=== PATIENT | female | born 1940 | race Caucasian/White ===

== ENCOUNTER → 2016-07-20 | Outpatient (CLI) | payer OTHER ==
[~2016-07-20] MED LIST: CEPH500C PO; CPR500HP; LANS15CA27 PO; LANS30CA12 PO; ONDA4TAB46 PO; OXYC1TAB3 PO; [UNRECOGNIZED DRUG - CODE] PO
--- NOTE | 2016-07-20 11:17 | DIAGNOSTIC IMAGING REPORT ---
LUMBAR SPINE 5 VIEWS HISTORY: Pain M54.5 Back pain, [id number] COMPARISON: 08/04/2015 FINDINGS: There is no fracture. No subluxation. Moderate degenerative disc change. No evidence for compression deformity. Mild reactive osteophytic change from the vertebral endplates. IMPRESSION: Moderate degenerative change. No acute process. No change from the prior exam. Electronically signed by: Alberto Buckner M.D. 07/20/2016 11:15 AM Dictated Date/Time: 07/20/2016 11:14 AM
--- NOTE | 2016-07-20 11:20 | DIAGNOSTIC IMAGING REPORT ---
KUB CLINICAL HISTORY: M54.5 Back pain, [id number] pain COMPARISON STUDY: No previous studies for comparison. FINDINGS: The soft tissues, psoas shadows, renal outlines and intestinal gas pattern appear normal. There is no evidence for bowel obstruction. No abnormal abdominal calcifications are seen. IMPRESSION: Normal study. Electronically signed by: Alberto Buckner M.D. 07/20/2016 11:18 AM Dictated Date/Time: 07/20/2016 11:18 AM
[2016-07-20 11:52] LABS: BASO % 0.4 %; BASO ABS # 0.03 K/uL (0-0.2); COMPLETE YES; EOS % 0.9 %; HEMATOCRIT 38.2 % (37-47); LYMPH % 27.5 %; LYMPH ABS # 1.93 K/uL (1.2-3.4); MEAN CELL VOLUME 90.7 fL (80-100); MEAN CORPUSCULAR HEMOGLOBIN 30.6 pg (25-34); MEAN CORPUSCULAR HGB CONC 33.8 g/dl (32-36); MEAN PLATELET VOLUME 10.9 fL (7.4-10.4); MONO % 8.1 %; NEUT % 63.1 %; PLATELET COUNT 198 K/uL (130-400); RED BLOOD COUNT 4.21 M/uL (4.2-5.4); WHITE BLOOD COUNT 7.02 K/uL (4.8-10.8)
[2016-07-20 12:25] LABS: ALT/SGPT 17 U/L (12-78); BLOOD UREA NITROGEN 18 mg/dl (7-18); BUN/CREATININE RATIO 16.4 (10-20); CALCIUM 8.5 mg/dl (8.5-10.1); CARBON DIOXIDE 21 mmol/L (21-32); CHLORIDE 106 mmol/L (98-107); GLUCOSE 92 mg/dl (70-99); POTASSIUM 3.9 mmol/L (3.5-5.1); SODIUM 138 mmol/L (136-145)
[2016-07-20 12:26] LABS: URINE APPEARANCE CLOUDY (CLEAR); URINE BILIRUBIN NEG (NEG); URINE COLOR YELLOW; URINE EPITHELIAL CELL AUTO 0-5 /lpf (0-5); URINE NITRITE POS (NEG); URINE PH 5.5 (4.5-7.5); UROBILINOGEN NEG (NEG); ZZUR CULT IF INDIC CLEAN CATCH YES
[2016-07-20 12:28] LABS: ALB/GLOB RATIO 1.1 (0.9-2); ALKALINE PHOSPHATASE 54 U/L (45-117); AST/SGOT 13 U/L (15-37)
[2016-07-20 12:35] LABS: MANUAL MICROSCOPIC REQUIRED? NO; REVIEW REQ? NO
== END | disposition home or self-care (01) ==
LOC: C.RAD1850 10:42
PROVIDERS: ATTEND Internal Medicine
DX: M54.5 Low back pain (principal); E55.9 Vitamin D deficiency, unspecified

== ENCOUNTER 2016-07-24 17:40 | Emergency (ER) | payer OTHER ==
[~2016-07-24] VITALS: Ht 157.5 cm; Wt 61.6 kg
[~2016-07-24 17:40] MED LIST changes: -CEPH500C PO; -CPR500HP; -LANS15CA27 PO; -[UNRECOGNIZED DRUG - CODE] PO
[2016-07-24 18:06] VITALS: TEMP 36.6; Ht 157.5 cm; Wt 61.6 kg
--- NOTE | 2016-07-24 19:02 | EMERGENCY ROOM VISIT NOTE ---
History Report prepared by Ishmael: Mike Curiel Under the Supervision of: Dr. Theresa Stevens M.D. First contact with patient: 18:46 Chief Complaint: SWELLING TO EXTREMITY Stated Complaint: SWOLLEN L HAND History of Present Illness The patient is a 76 year old female who presents to the Emergency Room with complaints of pain and swelling in the left elbow that began four days prior to arrival. This history was acquired from a family member of the patient's, as she does not speak French. The patient had blood drawn at her primary care physician's office on the 9 of this month, and the swelling started shortly afterward. She denies any rashes or swelling elsewhere. She also denies any shortness of breath, abdominal pain, or recent fevers. Source of History: patient, family Onset: 4 days prior to arrival Position: elbow (left) Quality: other (Swelling) Associated Symptoms: No SOB, No abdominal pain, No fevers Review of Systems See HPI for pertinent positives & negatives. A total of 10 systems reviewed and were otherwise negative. Past Medical & Surgical Medical Problems: (1) Cancer (2) HTN (hypertension) (3) Stomach problems Family History Cancer Heart disease Hypertension Lung disease Social History Smoking Status: Never Smoker Alcohol Use: none Marital Status: Occupation Status: retired Current/Historical Medications Scheduled Cephalexin Monohydrate (Keflex), 500 MG PO QID Cholecalciferol (Ra Vitamin D-3), 1 TAB PO DAILY Lansoprazole (Prevacid), 1 TAB PO BID Miscellaneous Medications Ciprofloxacin (Ciprofloxacin HCl) Allergies Coded Allergies: No Known Allergies (Unverified , 07/24/16) Physical Exam Vital Signs Date Time Temp Pulse Resp B/P Pulse Ox O2 Delivery O2 Flow Rate FiO2 07/24/16 22:08 78 20 158/74 97 07/24/16 20:56 79 07/24/16 20:03 80 20 161/80 94 Room Air 07/24/16 18:06 36.6 82 20 161/86 97 Room Air Physical Exam Vital signs reviewed. General: Elderly, generally well, in no significant distress. HEENT: No scleral icterus, PERRLA, neck supple. Atraumatic. Cardiovascular: Regular rate and rhythm, no extra sounds. Pulmonary: Clear to auscultation bilaterally, normal work of breathing. Abdomen: Soft, nontender, nondistended, positive bowel sounds. Extremities: Erythematous left mid-arm surrounding the AC space wrapped around the dorsal elbow. Tender to palpation, warm to touch, no open lesions, no drainage. No significant edema of the distal upper extremity. Neurologic: Patient awake alert and oriented x 3 Skin: Warm, dry, no rash Medical Decision & Procedures ER Provider Diagnostic Interpretation: X-ray results as stated below per my interpretation and radiologist interpretation. Other radiology results as stated below per my review and radiologist interpretation: LEFT UPPER EXTREMITY VENOUS DOPPLER ULTRASOUND CLINICAL HISTORY: Left upper extremity swelling. COMPARISON STUDY: No previous studies for comparison. FINDINGS: No deep venous thrombus was identified within the left upper extremity. The proximal left cephalic vein was suboptimally assessed on this exam. IMPRESSION: No deep venous thrombus within the left upper extremity. Electronically signed by: Nikolai Kothari M.D. 07/24/2016 8:51 PM Dictated Date/Time: 07/24/2016 8:51 PM Laboratory Results 07/24/16 19:40 Red Blood Count 4.26, Mean Corpuscular Volume 89.9, Mean Corpuscular Hemoglobin 30.8, Mean Corpuscular Hemoglobin Concent 34.2, Mean Platelet Volume 10.8, Neutrophils (%) (Auto) 65.5, Lymphocytes (%) (Auto) 24.9, Monocytes (%) (Auto) 7.2, Eosinophils (%) (Auto) 1.5, Basophils (%) (Auto) 0.7, Neutrophils # (Auto) 3.93, Lymphocytes # (Auto) 1.49, Monocytes # (Auto) 0.43, Eosinophils # (Auto) 0.09, Basophils # (Auto) 0.04 07/24/16 19:40 Test 07/24/16 19:40 White Blood Count 5.99 K/uL (4.8-10.8) Red Blood Count 4.26 M/uL (4.2-5.4) Hemoglobin 13.1 g/dL (12.0-16.0) Hematocrit 38.3 % (37-47) Mean Corpuscular Volume 89.9 fL (80-100) Mean Corpuscular Hemoglobin 30.8 pg (25-34) Mean Corpuscular Hemoglobin Concent 34.2 g/dl (32-36) Platelet Count 196 K/uL (130-400) Mean Platelet Volume 10.8 fL (7.4-10.4) Neutrophils (%) (Auto) 65.5 % Lymphocytes (%) (Auto) 24.9 % Monocytes (%) (Auto) 7.2 % Eosinophils (%) (Auto) 1.5 % Basophils (%) (Auto) 0.7 % Neutrophils # (Auto) 3.93 K/uL (1.4-6.5) Lymphocytes # (Auto) 1.49 K/uL (1.2-3.4) Monocytes # (Auto) 0.43 K/uL (0.11-0.59) Eosinophils # (Auto) 0.09 K/uL (0-0.5) Basophils # (Auto) 0.04 K/uL (0-0.2) RDW Standard Deviation 42.3 fL (36.4-46.3) RDW Coefficient of Variation 12.9 % (11.5-14.5) Immature Granulocyte % (Auto) 0.2 % Immature Granulocyte # (Auto) 0.01 K/uL (0.00-0.02) Prothrombin Time 10.2 SECONDS (9.0-12.0) Prothromb Time International Ratio 1.0 (0.9-1.1) Activated Partial Thromboplast Time 26.5 SECONDS (21.0-31.0) Partial Thromboplastin Ratio 1.0 Anion Gap 9.0 mmol/L (3-11) Est Creatinine Clear Calc Drug Dose 37.6 ml/min Estimated GFR () 56.5 Estimated GFR (Non- 48.7 BUN/Creatinine Ratio 17.0 (10-20) Calcium Level 8.9 mg/dl (8.5-10.1) Magnesium Level 2.4 mg/dl (1.8-2.4) Total Bilirubin 0.4 mg/dl (0.2-1) Direct Bilirubin 0.1 mg/dl (0-0.2) Aspartate Amino Transf (AST/SGOT) 11 U/L (15-37) Alanine Aminotransferase (ALT/SGPT) 18 U/L (12-78) Alkaline Phosphatase 55 U/L (45-117) Total Protein 7.3 gm/dl (6.4-8.2) Albumin 4.0 gm/dl (3.4-5.0) Laboratory results per my review. Medications Administered Medications (Trade) Dose Ordered Sig/Becka Route Start Time Stop Time Status Last Admin Dose Admin Sodium Chloride 250 ml @ 999 mls/hr Q16M STAT IV 07/24/16 19:13 07/24/16 19:28 DC 07/24/16 19:55 999 MLS/HR Sodium Chloride (Nss 1000ml) 1,000 ml @ 125 mls/hr Q8H STAT IV 07/24/16 19:13 07/24/16 22:21 DC 07/24/16 20:45 125 MLS/HR Cephalexin Monohydrate (Keflex 500MG Home Pack) 1 homepack NOW ONCE PO 07/24/16 21:00 07/24/16 21:01 DC 07/24/16 21:27 1 HOMEPACK Ceftriaxone Sodium (Rocephin Inj) 1 gm NOW STAT IV 07/24/16 21:07 07/24/16 21:08 DC 07/24/16 21:25 1 GM ED Course 1847: Past medical records reviewed. The patient was evaluated in room A10. A complete history and physical examination was performed. 1912: Ordered Sodium Chloride 250 mL @ 999 mL/hr IV, Sodium Chloride 1000 mL @ 125 mL/hr IV. 2099: Ordered Keflex 500 mg PO, Cephalexin 1 homepack PO. 2107: Upon reevaluation, the patient appeared to have improvement of her symptoms. I discussed findings with her. She verbalized agreement of the treatment plan. The patient's daughter also mentioned that the patient had recently been diagnosed with an UTI and was prescribed Cipro. She has not started this prescription yet. I will prescribe Keflex to cover the cellulitis and UTI. The patient was discharged home. Medical Decision Differential diagnosis: Etiologies such as cellulitis, abscess, MRSA infection, DVT, necrotizing fasciitis, dermatitis, drug eruption, as well as others were entertained. This pt was evaluated and appeared to be in no distress. PE reveals a red warm area to the left UE over AC area. US of LUE is negative for DVT. Pt was informed of the findings. Granddaughter states pt was recently was Rx cipro for UTI. Cultures results indicate a acmpos sensitive e coli. Pt was given 1 gm IV ceftriaxone. She was advised to not take the cipro, start keflex 500 mg QID x 7 days. This will likely treat the cellulitis and UTI. Pt will f.u with PCP this week and return to the ED for worsening of symptoms or any medical concerns. Impression Primary Impression: Cellulitis of left upper extremity Scribe Attestation The scribe's documentation has been prepared under my direction and personally reviewed by me in its entirety. I confirm that the note above accurately reflects all work, treatment, procedures, and medical decision making performed by me. Departure Information Dispostion Home / Self-Care Prescriptions Cephalexin Monohydrate (Keflex) 500 Mg Cap 500 MG PO QID, #28 CAP Prov: Theresa Stevens M.D. 07/24/16 Referrals RV. iBrd MD (PCP) Forms HOME CARE DOCUMENTATION FORM, IMPORTANT VISIT INFORMATION, WORK / SCHOOL INSTRUCTIONS Patient Instructions [facility] Additional Instructions Diagnosis: Cellulitis Keflex 500 mg 4 times daily for 7 days. Tylenol 650 mg every 6 hours as needed for pain or fever. If the rash worsens or if fever develops, he will need to be reevaluated. Return to the ER for worsening of symptoms or any medical concerns.
[2016-07-24] MEDS ORDERED: [UNRECOGNIZED DRUG - CODE] PO (19:08)
[2016-07-24] MEDS ORDERED: CPR500HP (19:08)
[2016-07-24] MEDS ORDERED: LANS15CA27 PO (19:08)
[2016-07-24] MEDS ORDERED: SODIUM CHLORIDE 0.9% 250ML 250 ML IV STA (19:13)
[2016-07-24] MEDS ORDERED: SODIUM CHLORIDE 0.9% 1000ML 1,000 ML IV STA (19:13)
[2016-07-24 19:49] LABS: BASO % 0.7 %; BASO ABS # 0.04 K/uL (0-0.2); COMPLETE YES; EOS % 1.5 %; HEMATOCRIT 38.3 % (37-47); IG% 0.2 %; LYMPH % 24.9 %; LYMPH ABS # 1.49 K/uL (1.2-3.4); MEAN CELL VOLUME 89.9 fL (80-100); MEAN CORPUSCULAR HEMOGLOBIN 30.8 pg (25-34); MEAN CORPUSCULAR HGB CONC 34.2 g/dl (32-36); MEAN PLATELET VOLUME 10.8 fL (7.4-10.4); MONO % 7.2 %; NEUT % 65.5 %; PLATELET COUNT 196 K/uL (130-400); RED BLOOD COUNT 4.26 M/uL (4.2-5.4); WHITE BLOOD COUNT 5.99 K/uL (4.8-10.8)
[2016-07-24 20:04] LABS: PROTHROMBIN TIME (PATIENT) 10.2 SECONDS (9.0-12.0)
[2016-07-24 20:08] LABS: CALCIUM 8.9 mg/dl (8.5-10.1); CREATININE 1.1 mg/dl (0.60-1.20); MAGNESIUM 2.4 mg/dl (1.8-2.4); POTASSIUM 3.9 mmol/L (3.5-5.1)
--- NOTE | 2016-07-24 20:53 | DIAGNOSTIC IMAGING REPORT ---
LEFT UPPER EXTREMITY VENOUS DOPPLER ULTRASOUND CLINICAL HISTORY: Left upper extremity swelling. COMPARISON STUDY: No previous studies for comparison. FINDINGS: No deep venous thrombus was identified within the left upper extremity. The proximal left cephalic vein was suboptimally assessed on this exam. IMPRESSION: No deep venous thrombus within the left upper extremity. Electronically signed by: Nikolai Kothari M.D. 07/24/2016 8:51 PM Dictated Date/Time: 07/24/2016 8:51 PM
[2016-07-24] MEDS ORDERED: CEPHALEXIN 500MG HOME PACK 1 EA BTL PO ONE (21:00)
[2016-07-24] MEDS ORDERED: CEPHALEXIN MONOHYDRATE 250 MG CAP PO ONE (21:00)
[2016-07-24] MEDS ORDERED: CEFTRIAXONE SOD INJ 1 GM ADDVIAL IV STA (21:07)
[2016-07-24] MEDS ORDERED: CEPH500C PO (21:37)
[2016-07-24 22:08] VITALS: BP 158/74; PULSE 78; O2SAT 97
== END 2016-07-24 22:10 | disposition home or self-care (01) ==
LOC: C.EDB 17:41 → C.EDA 22:10
DX: L03.114 Cellulitis of left upper limb (principal); N39.0 Urinary tract infection, site not specified; Z85.9 Personal history of malignant neoplasm, unspecified; I10 Essential (primary) hypertension; Z80.9 Family history of malignant neoplasm, unspecified; Z82.49 Family history of ischemic heart disease and other diseases of the circulatory system; Z83.6 Family history of other diseases of the respiratory system; Z79.899 Other long term (current) drug therapy; M79.602 Pain in left arm

== ENCOUNTER → 2016-08-02 | Outpatient (CLI) | payer OTHER ==
[~2016-08-02] MED LIST changes: +CEPH500C PO; +CPR500HP; +LANS15CA27 PO; -LANS30CA12 PO; -ONDA4TAB46 PO; -OXYC1TAB3 PO; +[UNRECOGNIZED DRUG - CODE] PO
[2016-08-02 10:19] LABS: URINE APPEARANCE CLEAR (CLEAR); URINE BILIRUBIN NEG (NEG); URINE COLOR YELLOW; URINE EPITHELIAL CELL AUTO 20-30 /lpf (0-5); URINE NITRITE NEG (NEG); UROBILINOGEN NEG (NEG); ZZUR CULT IF INDIC CLEAN CATCH NO
[2016-08-02 10:32] LABS: MANUAL MICROSCOPIC REQUIRED? NO; REVIEW REQ? NO
== END | disposition home or self-care (01) ==
LOC: C.LAB1850 09:15
PROVIDERS: ATTEND Internal Medicine
DX: R35.0 Frequency of micturition (principal)

== ENCOUNTER → 2017-06-26 | Outpatient (CLI) | payer OTHER ==
[~2017-06-26] MED LIST changes: -CEPH500C PO
--- NOTE | 2017-06-26 16:48 | DIAGNOSTIC IMAGING REPORT ---
PELVIS 1 OR 2 VIEW ROUTINE, SACRUM COCCYX MIN 2 VIEWS HISTORY: 77 years-old Female W19.XXXA Fall, [id number] acute pelvic pain status post fall COMPARISON: Lumbar spine radiographs 07/20/2016 TECHNIQUE: AP view the pelvis with 2 views of the sacrum and coccyx FINDINGS: PELVIS: Bones appear mildly demineralized. Mild to moderate degenerative changes of the bilateral femoral acetabular joints. Proximal femora appear intact bilaterally. No pelvic ring fracture is identified. Degenerative changes are noted within the imaged lower lumbar spine. Probable phleboliths of the pelvis. Soft tissues are unremarkable. SACRUM/COCCYX: Sacrum appears intact. Mild to moderate degenerative changes of the bilateral SI joints and pubic symphysis. No acute fracture or subluxation identified. Moderate to severe intervertebral disc space narrowing at L5-S1 with multilevel facet arthrosis. IMPRESSION: 1. No acute fracture of the pelvis, sacrum or coccyx identified. 2. Mildly demineralized appearance of the bones with degenerative changes as above. The above report was generated using voice recognition software. It may contain grammatical, syntax or spelling errors. Electronically signed by: Jose Manuel Hanson M.D. 06/26/2017 4:47 PM Dictated Date/Time: 06/26/2017 4:44 PM
== END | disposition home or self-care (01) ==
LOC: C.RAD1850 15:37
PROVIDERS: ATTEND Internal Medicine
DX: R10.2 Pelvic and perineal pain (principal); W19.XXXA Unspecified fall, initial encounter

== ENCOUNTER → 2017-09-10 | Outpatient (CLI) | payer OTHER ==
[2017-09-10 10:36] LABS: BASO % 0.8 %; BASO ABS # 0.04 K/uL (0-0.2); EOS % 2.3 %; EOS ABS # 0.12 K/uL (0-0.5); HEMATOCRIT 42.5 % (37-47); HEMOGLOBIN 14.2 g/dL (12.0-16.0); LYMPH % 39.3 %; LYMPH ABS # 2.05 K/uL (1.2-3.4); MEAN CELL VOLUME 90.8 fL (80-100); MEAN CORPUSCULAR HEMOGLOBIN 30.3 pg (25-34); MEAN CORPUSCULAR HGB CONC 33.4 g/dl (32-36); MEAN PLATELET VOLUME 10.5 fL (7.4-10.4); MONO % 7.5 %; MONO ABS # 0.39 K/uL (0.11-0.59); NEUT % 50.1 %; NEUT ABS # 2.61 K/uL (1.4-6.5); PLATELET COUNT 228 K/uL (130-400); RED CELL DISTRIBUTION WIDTH CV 12.7 % (11.5-14.5); RED CELL DISTRIBUTION WIDTH SD 41.9 fL (36.4-46.3); WHITE BLOOD COUNT 5.21 K/uL (4.8-10.8)
[2017-09-10 11:00] LABS: ALBUMIN 3.8 gm/dl (3.4-5.0); ALT/SGPT 20 U/L (12-78); AST/SGOT 15 U/L (15-37); BLOOD UREA NITROGEN 17 mg/dl (7-18); CALCIUM 8.9 mg/dl (8.5-10.1); CARBON DIOXIDE 26 mmol/L (21-32); CREATININE 0.85 mg/dl (0.60-1.20); GLUCOSE 94 mg/dl (70-99); POTASSIUM 3.9 mmol/L (3.5-5.1); SODIUM 140 mmol/L (136-145)
[2017-09-10 11:10] LABS: ALKALINE PHOSPHATASE 56 U/L (45-117); TOTAL PROTEIN 7.4 gm/dl (6.4-8.2)
== END | disposition home or self-care (01) ==
LOC: C.LAB1850 08:56
PROVIDERS: ATTEND Internal Medicine
DX: R10.11 Right upper quadrant pain (principal); E55.9 Vitamin D deficiency, unspecified; R63.0 Anorexia